=== PATIENT | female | born 1935 | race Caucasian/White ===

== ENCOUNTER → 2016-08-15 | Outpatient (CLI) | payer OTHER ==
[~2016-08-15] MED LIST: ANTIVERT/2525 MG PO; ARTHRITIS MED; AUGMENTIN 875875 MG PO; FLAGYL500 MG PO; FLONASE 0.05% 121 EA NAS; HYDROCODONE BIT1 T11 PO; HYDROXYCHLOROQ200 M1 PO; LEVOFLOXACIN500 MG PO; METHOTREXATE2.5 M1 PO; MIRALAX POWDER17 G1 PO; NATURE'S BLEND F1 MG PO; NORCO 325 MG-51 TAB PO; NORFLEX100 MG PO; PREDNICOT10 MG PO; ZITHROMAX Z PA250 MG PO; ZOFRAN ODT4 MG SL; ZYRTEC10 MG PO; Zofran4 MG PO
[2016-08-15 10:00] LABS: EST GLOM FILT AFRICAN AMERICAN > 60 ml/min
== END | disposition home or self-care (01) ==
LOC: MRI 08:54
PROVIDERS: Radiology Diagnostic Radiology
DX: M54.41 Lumbago with sciatica, right side (principal); M54.42 Lumbago with sciatica, left side; M54.2 Cervicalgia; Z98.890 Other specified postprocedural states

== ENCOUNTER → 2016-10-31 | Outpatient (CLI) | payer OTHER ==
--- NOTE | ~2016-10-31 | EKG ---
[place], [place] ELECTROCARDIOGRAM REPORT NAME: DARIEN MARSH UNIT #: [id number] ROOM: DOCTOR: SILVESTRE SAAB MD BIRTHDATE: [birth year] DOS: 10/31/2016 TIME: 09:13 a.m. Normal sinus rhythm. Normal electrocardiogram. SILVESTRE SAAB MD CM:EKGRPT:ELECTROCARDIOGRAM REPORT [id number] SILVESTRE SAAB MD
[2016-10-31 08:51] LABS: BASO % 0.8 % (0.0-1.0); EOS # 0.1 10*3/uL (0.0-0.4); HEMATOCRIT 38.6 % (37.0-47.0); HEMOGLOBIN 12.7 g/dl (12.0-16.0); LYMPH # 1.8 10*3/uL (1.3-4.4); LYMPH % 35.2 % (27.0-41.0); MEAN CELL VOLUME 98.5 fl (81.0-99.0); MEAN CORPUSCULAR HGB 32.4 pg (27.0-31.0); MEAN CORPUSCULAR HGB CONC 32.9 g/dl (33.0-37.0); MEAN PLATELET VOLUME 11.8 fl (9.6-12.3); MONO # 0.4 10*3/uL (0.1-1.0); MONO % 8.2 % (3.0-9.0); NEUT # 2.7 10*3/uL (2.3-7.9); NEUT % 53.6 % (47.0-73.0); PLATELET COUNT AUTOMATED 116 10*3/uL (130-400); RED BLOOD COUNT 3.92 10*6/uL (4.10-5.10); RED CELL DISTRI WIDTH 14.5 % (0-14.5)
[2016-10-31 09:19] LABS: ALBUMIN 3.8 gm/dl (3.1-4.5); ALKALINE PHOSPHATASE 71 U/L (45-117); BILIRUBIN, TOTAL 0.5 mg/dl (0.2-1.0); BUN 10 mg/dl (7-24); CARBON DIOXIDE 29 mmol/L (21-32); CHLORIDE 109 mmol/L (98-107); EST GLOM FILT AFRICAN AMERICAN > 60 ml/min; GLUCOSE 77 mg/dL (65-99); POTASSIUM 4.1 mmol/L (3.5-5.1); SGOT/AST 39 IU/L (3-35); SGPT/ALT 29 U/L (12-78); SODIUM 142 mmol/L (136-145); TOTAL PROTEIN 6.8 gm/dL (6.4-8.2)
[2016-10-31 09:21] LABS: BILIRUBIN NEGATIVE (NEGATIVE); BLOOD NEGATIVE (NEGATIVE); CLARITY SL CLOUDY (CLEAR); COLOR YELLOW (YELLOW); GLUCOSE NEGATIVE (NEGATIVE); KETONE NEGATIVE (NEGATIVE); LEUKO ESTERASE 1+ (NEGATIVE); NITRITE NEGATIVE (NEGATIVE); PROTEIN NEGATIVE (NEGATIVE); SPECIFIC GRAVITY >= 1.030 (1.005-1.030); UROBILINOGEN 0.2 E.U./dl (0.2-1.0)
[2016-10-31 09:40] LABS: MUCOUS TRACE; RBC 0-2 rbc/hpf (0-2); URINE REFLEX COMMENT YES (NO)
== END | disposition home or self-care (01) ==
LOC: LAB 08:27
DX: Z01.818 Encounter for other preprocedural examination (principal); M12.811 Other specific arthropathies, not elsewhere classified, right shoulder; Z79.899 Other long term (current) drug therapy

== ENCOUNTER → 2017-02-01 | Outpatient (CLI) | payer OTHER | END | disposition home or self-care (01) | LOC: RAD/SH 07:42 → RAD 08:00 | DX: K44.9 Diaphragmatic hernia without obstruction or gangrene (principal); R06.6 Hiccough ==

== ENCOUNTER → 2017-02-10 | Outpatient (CLI) | payer OTHER | END | disposition home or self-care (01) | LOC: ORTHO 02:12 | DX: M25.462 Effusion, left knee (principal); I70.90 Unspecified atherosclerosis ==

== ENCOUNTER → 2017-09-29 | Day surgery (SDC) | payer OTHER ==
[~2017-09-29] VITALS: Ht 170.1 cm; Wt 87.1 kg
[~2017-09-29] MED LIST changes: +CARAFATE1 G1 PO; +DOXYCYCLINE100 MG PO; +KEFLEX500 M1 PO; +METHOTREXATE2.5 MG PO; +NEXIUM40 MG PO; +VITAMIN B 12 PO; +VITAMIN C500 M4 PO; +VITAMIN D-32000 UNIT PO
--- NOTE | ~2017-09-29 | O ---
[place], [place] OPERATIVE NOTE NAME: DARIEN MARSH [facility] #: [id number] UNIT #: [id number] ROOM: [facility] [birth year] DOS: 09/29/2017 GASTROENDOSCOPIC REPORT HISTORY OF PRESENT ILLNESS: The patient is a 81-year-old with chief complaint of dysphagia, dyspepsia, undergoing investigation. The patient has been on methotrexate. The patient has been on hydroxyquine. The patient has been on Nexium 40 mg daily, doxycycline. She has had esophageal dilation in past. PAST SURGICAL HISTORY: Hip, spine, bilateral knee multiple Orthopedics. ALLERGIES: No known medication. SOCIAL HISTORY: Nonsmoker, nonalcohol consumer. Today's procedure part of investigation is panendoscopy plus biopsy plus esophageal balloon dilation to size 20. PREMEDICATION: Versed and Diprivan. SCOPE: Olympus forward-viewing gastroscope Q10 video. REPORT: After putting the patient in left lateral position and application of lubricant to the scope, the scope was introduced. Thereafter, under direct visualization, advanced through the length of esophagus without difficulty. Distal esophageal ulceration and the stricture site was identified. Photographic series obtained. Balloon dilation to size 20 of distal esophagus was undertaken. Hiatal hernia noticed. Gastric pouch was entered. As I approached toward the antrum, a punctated ulceration 2 cm proximal to the antrum was noticed, biopsy from margin of which was obtained. ____ Duodenal bulb, second and third part within normal limits. The patient extubated, tolerated the procedure well. IMPRESSION: Antral ulcer, gastritis, distal esophageal stricture, distal esophageal ulcers, status post balloon dilation. PLAN AND DISCUSSION: She is already on Nexium 40 mg daily and is not helping control of ulcerations at the gastric and esophageal level. Therefore, I am going to start her on Carafate 1 gram before meals and at bedtime at least 1 month and after that reduce to 1 gram t.i.d. and clinical reassessment again in future. She is going to continue with the Nexium 40 mg a day, antireflux measures, elevation of the head of the bed is in order. Follow up routinely with you in office, p.r.n. visit with us in GI Clinic. I thank you very much again for your kind referral. Photographic series have been attached to the chart for future reference and documentation. [place], [place] OPERATIVE NOTE NAME: MAIDA MARSHEstephanie Sauceda UNIT #: [id number] ROOM: DOCTOR: CINDY PACHECO,CHENCHO BIRTHDATE: [birth year] CHENCHO WHITE MD CM:OPRECORD:OPERATIVE NOTE [id number] KATE WHITE MD (TED) 09/29/17 1316 interface
[2017-09-29 10:53] VITALS: BP 162/45
[2017-09-29 12:19] VITALS: BP 130/60
[2017-09-29 12:34] VITALS: BP 169/65
[2017-09-29 12:45] VITALS: BP 178/75
== END | disposition home or self-care (01) ==
LOC: SDC 09-26 01:31
DX: K29.50 Unspecified chronic gastritis without bleeding (principal); K25.9 Gastric ulcer, unspecified as acute or chronic, without hemorrhage or perforation; K22.2 Esophageal obstruction; K22.10 Ulcer of esophagus without bleeding; K44.9 Diaphragmatic hernia without obstruction or gangrene; M19.90 Unspecified osteoarthritis, unspecified site; F41.1 Generalized anxiety disorder; K21.9 Gastro-esophageal reflux disease without esophagitis; F32.9 Major depressive disorder, single episode, unspecified; Z96.653 Presence of artificial knee joint, bilateral; Z96.611 Presence of right artificial shoulder joint; Z96.641 Presence of right artificial hip joint

== ENCOUNTER 2017-10-12 09:41 | Emergency (ER) | payer OTHER ==
[~2017-10-12] VITALS: Wt 87.1 kg
[2017-10-12 10:05] LABS: BILIRUBIN NEGATIVE (NEGATIVE); BLOOD TRACE-INTACT (NEGATIVE); CLARITY CLOUDY (CLEAR); COLOR YELLOW (YELLOW); GLUCOSE NEGATIVE (NEGATIVE); KETONE NEGATIVE (NEGATIVE); LEUKO ESTERASE 2+ (NEGATIVE); NITRITE POSITIVE (NEGATIVE); SPECIFIC GRAVITY >= 1.030 (1.005-1.030); UROBILINOGEN 0.2 E.U./dl (0.2-1.0)
[2017-10-12 10:14] LABS: BACTERIA 3+; WBC TNTC wbc/hpf (0-5)
[2017-10-12 10:35] LABS: BASO % 0.3 % (0.0-1.0); EOS % 0.6 % (1.0-4.0); HEMATOCRIT 37.5 % (37.0-47.0); HEMOGLOBIN 12.4 g/dl (12.0-16.0); LYMPH % 31.6 % (27.0-41.0); MEAN CELL VOLUME 93.8 fl (81.0-99.0); MEAN CORPUSCULAR HGB CONC 33.1 g/dl (33.0-37.0); MEAN PLATELET VOLUME 11.2 fl (9.6-12.3); MONO # 0.3 10*3/uL (0.1-1.0); MONO % 8.4 % (3.0-9.0); NEUT # 1.9 10*3/uL (2.3-7.9); NEUT % 59.1 % (47.0-73.0); PLATELET COUNT AUTOMATED 98 10*3/uL (130-400); WHITE BLOOD COUNT 3.2 10*3/uL (4.8-10.8)
[2017-10-12 10:52] LABS: ALBUMIN 3.4 gm/dl (3.1-4.5); ALKALINE PHOSPHATASE 104 U/L (45-117); BUN 12 mg/dl (7-24); CHLORIDE 106 mmol/L (98-107); CREATININE 0.91 mg/dL (0.55-1.02); SGOT/AST 32 IU/L (3-35); SGPT/ALT 24 U/L (12-78); SODIUM 138 mmol/L (136-145); TOTAL PROTEIN 6.8 gm/dL (6.4-8.2)
[2017-10-12 10:55] LABS: TROPONIN I < 0.015 ng/ml (<0.045)
[2017-10-12] MEDS ORDERED: LEVAQUIN750 M1 PO (11:53)
[2017-10-12] MEDS ORDERED: OMEPRAZOLE MAGN20 MG PO (11:53)
[2017-10-12] MEDS ORDERED: PREDNISONE50 MG PO (11:55)
== END 2017-10-12 12:00 | disposition home or self-care (01) ==
LOC: ED 09:41
PROVIDERS: Student in an Organized Health Care Education/Training Program
DX: N39.0 Urinary tract infection, site not specified (principal); R31.9 Hematuria, unspecified; K21.9 Gastro-esophageal reflux disease without esophagitis; E03.9 Hypothyroidism, unspecified; Z79.899 Other long term (current) drug therapy

== ENCOUNTER 2017-12-17 12:13 | Emergency (ER) | payer OTHER ==
[~2017-12-17] VITALS: Ht 170.1 cm; Wt 89.4 kg
[~2017-12-17 12:13] MED LIST changes: +LEVAQUIN750 M1 PO; +OMEPRAZOLE MAGN20 MG PO; +PREDNISONE50 MG PO
[2017-12-17 13:12] LABS: BASO % 0.8 % (0.0-1.0); EOS # 0.1 10*3/uL (0.0-0.4); EOS % 2.7 % (1.0-4.0); HEMOGLOBIN 12.3 g/dl (12.0-16.0); LYMPH # 1.6 10*3/uL (1.3-4.4); LYMPH % 30.7 % (27.0-41.0); MEAN CELL VOLUME 95.5 fl (81.0-99.0); MEAN CORPUSCULAR HGB 30.9 pg (27.0-31.0); MEAN CORPUSCULAR HGB CONC 32.4 g/dl (33.0-37.0); MEAN PLATELET VOLUME 12.1 fl (9.6-12.3); MONO # 0.7 10*3/uL (0.1-1.0); MONO % 12.8 % (3.0-9.0); NEUT # 2.7 10*3/uL (2.3-7.9); NEUT % 52.8 % (47.0-73.0); PLATELET COUNT AUTOMATED 110 10*3/uL (130-400); RED BLOOD COUNT 3.98 10*6/uL (4.10-5.10); WHITE BLOOD COUNT 5.2 10*3/uL (4.8-10.8)
[2017-12-17 13:31] LABS: ALBUMIN 3.8 gm/dl (3.1-4.5); ALKALINE PHOSPHATASE 96 U/L (45-117); BUN 7 mg/dl (7-24); CHLORIDE 106 mmol/L (98-107); CREATININE 0.79 mg/dL (0.55-1.02); POTASSIUM 3.9 mmol/L (3.5-5.1); SGOT/AST 38 IU/L (3-35); SGPT/ALT 32 U/L (12-78); SODIUM 139 mmol/L (136-145); TOTAL PROTEIN 7.3 gm/dL (6.4-8.2)
[2017-12-17 13:33] LABS: TROPONIN I < 0.015 ng/ml (<0.045)
[2017-12-17] MEDS ORDERED: PROAIR HFA8.5 GM INH (13:34)
[2017-12-17] MEDS ORDERED: MEDROL DOSEPAK4 MG PO (13:34)
[2017-12-17] MEDS ORDERED: AUGMENTIN 875875 MG PO (13:34)
[2017-12-17] MEDS ORDERED: TESSALON PERLE100 M1 PO (13:35)
== END 2017-12-17 14:02 | disposition home or self-care (01) ==
LOC: ED 12:13
PROVIDERS: Nurse Practitioner Family
DX: J06.9 Acute upper respiratory infection, unspecified (principal); R63.0 Anorexia; K21.9 Gastro-esophageal reflux disease without esophagitis; M06.9 Rheumatoid arthritis, unspecified; E03.9 Hypothyroidism, unspecified; E66.9 Obesity, unspecified; Z79.899 Other long term (current) drug therapy

== ENCOUNTER 2018-12-12 10:05 | Emergency (ER) | payer OTHER ==
[~2018-12-12] VITALS: Ht 170.1 cm; Wt 87.1 kg
[~2018-12-12 10:05] MED LIST changes: +MEDROL DOSEPAK4 MG PO; +PROAIR HFA8.5 GM INH; +TESSALON PERLE100 M1 PO
[2018-12-12 10:54] LABS: BASO % 0.8 % (0.0-1.0); EOS # 0.1 10*3/uL (0.0-0.4); EOS % 1.6 % (1.0-4.0); HEMATOCRIT 36.1 % (37.0-47.0); HEMOGLOBIN 12.1 g/dl (12.0-16.0); LYMPH # 0.7 10*3/uL (1.3-4.4); LYMPH % 13.9 % (27.0-41.0); MEAN CELL VOLUME 96.5 fl (81.0-99.0); MEAN CORPUSCULAR HGB 32.4 pg (27.0-31.0); MEAN CORPUSCULAR HGB CONC 33.5 g/dl (33.0-37.0); MEAN PLATELET VOLUME 12.6 fl (9.6-12.3); MONO # 0.5 10*3/uL (0.1-1.0); MONO % 9.7 % (3.0-9.0); NEUT # 3.7 10*3/uL (2.3-7.9); NEUT % 73.8 % (47.0-73.0); PLATELET COUNT AUTOMATED 165 10*3/uL (130-400); RED BLOOD COUNT 3.74 10*6/uL (4.10-5.10); RED CELL DISTRI WIDTH 14.4 % (0-14.5)
[2018-12-12 11:00] LABS: BILIRUBIN NEGATIVE (NEGATIVE); BLOOD NEGATIVE (NEGATIVE); CLARITY CLOUDY (CLEAR); GLUCOSE NEGATIVE (NEGATIVE); KETONE NEGATIVE (NEGATIVE); LEUKO ESTERASE TRACE (NEGATIVE); NITRITE NEGATIVE (NEGATIVE); SPECIFIC GRAVITY 1.025 (1.005-1.030); UROBILINOGEN 0.2 E.U./dl (0.2-1.0)
[2018-12-12 11:12] LABS: BACTERIA 2+; COLOR YELLOW (YELLOW); MUCOUS 1+
[2018-12-12 11:30] LABS: ALBUMIN 3.6 gm/dl (3.1-4.5); ALKALINE PHOSPHATASE 83 U/L (45-117); BUN 11 mg/dl (7-24); CHLORIDE 104 mmol/L (98-107); CREATININE 0.82 mg/dL (0.55-1.02); POTASSIUM 4.2 mmol/L (3.5-5.1); SGOT/AST 30 IU/L (3-35); SGPT/ALT 30 U/L (12-78); SODIUM 137 mmol/L (136-145); TOTAL PROTEIN 7.1 gm/dL (6.4-8.2)
== END 2018-12-12 13:57 | disposition home or self-care (01) ==
LOC: ED 10:05
PROVIDERS: Emergency Medicine
DX: K57.92 Diverticulitis of intestine, part unspecified, without perforation or abscess without bleeding (principal); K21.9 Gastro-esophageal reflux disease without esophagitis; E03.9 Hypothyroidism, unspecified; E66.9 Obesity, unspecified; Z79.899 Other long term (current) drug therapy; Z79.2 Long term (current) use of antibiotics; Z90.49 Acquired absence of other specified parts of digestive tract

== ENCOUNTER → 2019-05-15 | Outpatient (CLI) | payer OTHER | END | disposition home or self-care (01) | LOC: US 06:27 | DX: N20.0 Calculus of kidney (principal); Z90.710 Acquired absence of both cervix and uterus; Z96.641 Presence of right artificial hip joint ==

== ENCOUNTER 2019-09-19 01:53 | Inpatient (IN) | payer MEDICARE ==
[2019-09-19] VITALS (13 sets, daily range): BP systolic 147–196; BP diastolic 61–99
[~2019-09-19] VITALS: Ht 167.6 cm; Wt 91.8 kg
[2019-09-19 02:30] LABS: BASO % 0.4 % (0.0-1.0); EOS # 0.1 10*3/uL (0.0-0.4); EOS % 1.7 % (1.0-4.0); HEMATOCRIT 38.7 % (37.0-47.0); HEMOGLOBIN 12.7 g/dl (12.0-16.0); LYMPH # 1.7 10*3/uL (1.3-4.4); LYMPH % 24.1 % (27.0-41.0); MEAN CORPUSCULAR HGB 31.8 pg (27.0-31.0); MEAN CORPUSCULAR HGB CONC 32.8 g/dl (33.0-37.0); MEAN PLATELET VOLUME 11.7 fl (9.6-12.3); MONO # 0.4 10*3/uL (0.1-1.0); MONO % 6.3 % (3.0-9.0); NEUT # 4.7 10*3/uL (2.3-7.9); NEUT % 67.2 % (47.0-73.0); PLATELET COUNT AUTOMATED 128 10*3/uL (130-400); RED BLOOD COUNT 3.99 10*6/uL (4.10-5.10); RED CELL DISTRI WIDTH 13.2 % (0-14.5)
[2019-09-19 02:43] LABS: ALKALINE PHOSPHATASE 96 U/L (45-117); BUN 12 mg/dl (7-24); CHLORIDE 105 mmol/L (98-107); CREATININE 0.92 mg/dL (0.55-1.02); LIPASE 90 U/L (73-393); POTASSIUM 3.7 mmol/L (3.5-5.1); SGOT/AST 50 IU/L (3-35); SGPT/ALT 42 U/L (12-78); SODIUM 139 mmol/L (136-145); TOTAL PROTEIN 7.3 gm/dL (6.4-8.2)
[2019-09-19 04:23] LABS: BILIRUBIN NEGATIVE (NEGATIVE); BLOOD NEGATIVE (NEGATIVE); CLARITY CLEAR (CLEAR); COLOR YELLOW (YELLOW); GLUCOSE NEGATIVE (NEGATIVE); KETONE NEGATIVE (NEGATIVE); LEUKO ESTERASE NEGATIVE (NEGATIVE); NITRITE NEGATIVE (NEGATIVE); PH 6.5 (5.0-9.0); UROBILINOGEN 0.2 E.U./dl (0.2-1.0)
[2019-09-19 04:41] LABS: BACTERIA TRACE; RBC 0-2 rbc/hpf (0-2); WBC 0-2 wbc/hpf (0-5)
[2019-09-19] MEDS ORDERED: METHOTREXATE2.5 M1 PO (05:53)
[2019-09-19 06:26] LABS: PHOSPHOROUS 3.4 mg/dL (2.5-4.9)
[2019-09-19 06:31] LABS: INTERNATIONAL NORM RATIO 0.9 (2.0-3.5)
[2019-09-19 06:32] LABS: THYROID STIM HORMONE (HS) 2.68 uIU/ml (0.358-4.75)
[2019-09-20] VITALS: BP 143/51
[2019-09-20 06:24] LABS: BASO % 0.8 % (0.0-1.0); EOS # 0.1 10*3/uL (0.0-0.4); EOS % 3.3 % (1.0-4.0); HEMATOCRIT 34.4 % (37.0-47.0); HEMOGLOBIN 10.9 g/dl (12.0-16.0); LYMPH # 1.1 10*3/uL (1.3-4.4); MEAN CELL VOLUME 99.4 fl (81.0-99.0); MEAN CORPUSCULAR HGB 31.5 pg (27.0-31.0); MEAN CORPUSCULAR HGB CONC 31.7 g/dl (33.0-37.0); MEAN PLATELET VOLUME 12.3 fl (9.6-12.3); MONO # 0.3 10*3/uL (0.1-1.0); MONO % 7.8 % (3.0-9.0); NEUT # 2.4 10*3/uL (2.3-7.9); NEUT % 61.1 % (47.0-73.0); PLATELET COUNT AUTOMATED 103 10*3/uL (130-400); RED BLOOD COUNT 3.46 10*6/uL (4.10-5.10); RED CELL DISTRI WIDTH 13.3 % (0-14.5)
[2019-09-20 06:32] LABS: ALBUMIN 3.2 gm/dl (3.1-4.5); ALKALINE PHOSPHATASE 69 U/L (45-117); BUN 5 mg/dl (7-24); CHLORIDE 112 mmol/L (98-107); CREATININE 0.79 mg/dL (0.55-1.02); POTASSIUM 4.2 mmol/L (3.5-5.1); SGOT/AST 38 IU/L (3-35); SGPT/ALT 30 U/L (12-78); SODIUM 142 mmol/L (136-145); TOTAL PROTEIN 6.2 gm/dL (6.4-8.2)
[2019-09-20 08:00] VITALS: BP 172/56
[2019-09-20 12:00] VITALS: BP 166/85
[2019-09-20 16:00] VITALS: BP 177/76
== END 2019-09-20 17:25 | disposition home or self-care (01) | DRG 392 ==
LOC: ED 01:53 → EDHOLD 04:49 → 4E 04:49
PROVIDERS: Emergency Medicine; Internal Medicine; Student in an Organized Health Care Education/Training Program; ADMIT Family Medicine
DX: A08.4 Viral intestinal infection, unspecified (principal); D69.6 Thrombocytopenia, unspecified; I16.0 Hypertensive urgency; R73.9 Hyperglycemia, unspecified; K44.9 Diaphragmatic hernia without obstruction or gangrene; R13.10 Dysphagia, unspecified; M06.9 Rheumatoid arthritis, unspecified; E03.9 Hypothyroidism, unspecified; E66.9 Obesity, unspecified; K21.9 Gastro-esophageal reflux disease without esophagitis; I10 Essential (primary) hypertension; Z96.653 Presence of artificial knee joint, bilateral; Z96.611 Presence of right artificial shoulder joint; Z96.641 Presence of right artificial hip joint; Z79.899 Other long term (current) drug therapy; Z88.5 Allergy status to narcotic agent; Z68.34 Body mass index [BMI] 34.0-34.9, adult

== ENCOUNTER 2020-08-25 18:15 | Emergency (ER) | payer MEDICARE ==
[~2020-08-25] VITALS: Ht 170.1 cm; Wt 95.3 kg
[2020-08-25 19:42] LABS: BASO # 0.1 10*3/uL (0.0-0.1); BASO % 0.9 % (0.0-1.0); EOS # 0.2 10*3/uL (0.0-0.4); EOS % 4.2 % (1.0-4.0); HEMATOCRIT 37.3 % (37.0-47.0); LYMPH # 1.4 10*3/uL (1.3-4.4); MEAN CELL VOLUME 94.9 fl (81.0-99.0); MEAN CORPUSCULAR HGB 30.3 pg (27.0-31.0); MEAN CORPUSCULAR HGB CONC 31.9 g/dl (33.0-37.0); MEAN PLATELET VOLUME 11.3 fl (9.6-12.3); MONO # 0.5 10*3/uL (0.1-1.0); MONO % 8.4 % (3.0-9.0); NEUT # 3.6 10*3/uL (2.3-7.9); NEUT % 62.3 % (47.0-73.0); PLATELET COUNT AUTOMATED 132 10*3/uL (130-400); RED BLOOD COUNT 3.93 10*6/uL (4.10-5.10); WHITE BLOOD COUNT 5.7 10*3/uL (4.8-10.8)
[2020-08-25 19:59] LABS: ALBUMIN 3.7 gm/dl (3.1-4.5); CREATININE 1.12 mg/dL (0.55-1.02); POTASSIUM 4.8 mmol/L (3.5-5.1); TOTAL PROTEIN 7.2 gm/dL (6.4-8.2)
[2020-08-25] MEDS ORDERED: OMEPRAZOLE40 MG PO (21:06)
[2020-08-25] MEDS ORDERED: MIRALAX POWDER17 G1 PO (21:06)
== END 2020-08-25 21:35 | disposition home or self-care (01) ==
LOC: ED 18:15
PROVIDERS: Internal Medicine
DX: K21.9 Gastro-esophageal reflux disease without esophagitis (principal); K59.00 Constipation, unspecified; M19.90 Unspecified osteoarthritis, unspecified site; F41.9 Anxiety disorder, unspecified; F32.9 Major depressive disorder, single episode, unspecified; M79.7 Fibromyalgia; M06.9 Rheumatoid arthritis, unspecified; Z88.6 Allergy status to analgesic agent; Z79.899 Other long term (current) drug therapy; Z98.890 Other specified postprocedural states; Z90.49 Acquired absence of other specified parts of digestive tract; Z96.653 Presence of artificial knee joint, bilateral; Z96.641 Presence of right artificial hip joint; Z96.611 Presence of right artificial shoulder joint

== ENCOUNTER → 2020-10-05 | Outpatient (CLI) | payer MEDICARE ==
[~2020-10-05] MED LIST changes: +OMEPRAZOLE40 MG PO
== END | disposition home or self-care (01) ==
LOC: ORTHO 00:22
PROVIDERS: ATTEND Orthopaedic Surgery
DX: M85.861 Other specified disorders of bone density and structure, right lower leg (principal); M85.862 Other specified disorders of bone density and structure, left lower leg; I70.203 Unspecified atherosclerosis of native arteries of extremities, bilateral legs; R60.0 Localized edema; Z96.653 Presence of artificial knee joint, bilateral

== ENCOUNTER 2021-12-24 22:29 | Emergency (ER) | payer MEDICARE ==
[2021-12-24] MEDS ORDERED: PANTOPRAZOLE SO40 MG PO (22:45)
[2021-12-24] MEDS ORDERED: METHOTREXATE S2.5 M1 PO (22:45)
[2021-12-24 23:11] LABS: BASO % 0.8 % (0.0-1.0); EOS # 0.1 10*3/uL (0.0-0.4); EOS % 3.6 % (1.0-4.0); HEMATOCRIT 34.7 % (37.0-47.0); LYMPH # 0.9 10*3/uL (1.3-4.4); LYMPH % 23.8 % (27.0-41.0); MEAN CELL VOLUME 96.9 fl (81.0-99.0); MEAN CORPUSCULAR HGB 31.6 pg (27.0-31.0); MEAN CORPUSCULAR HGB CONC 32.6 g/dl (33.0-37.0); MEAN PLATELET VOLUME 12.3 fl (9.6-12.3); MONO # 0.3 10*3/uL (0.1-1.0); MONO % 6.7 % (3.0-9.0); NEUT # 2.5 10*3/uL (2.3-7.9); NEUT % 64.8 % (47.0-73.0); PLATELET COUNT AUTOMATED 56 10*3/uL (130-400); RED BLOOD COUNT 3.58 10*6/uL (4.10-5.10); RED CELL DISTRI WIDTH 14.3 % (0-14.5); WHITE BLOOD COUNT 3.9 10*3/uL (4.8-10.8)
[2021-12-24] MEDS ORDERED: LEFLUNOMIDE10 M1 PO (23:18)
[2021-12-24 23:28] LABS: ALKALINE PHOSPHATASE 117 U/L (45-117); BUN 10 mg/dl (7-24); CHLORIDE 111 mmol/L (98-107); CREATININE 0.84 mg/dL (0.55-1.02); LIPASE 103 U/L (73-393); POTASSIUM 4.4 mmol/L (3.5-5.1); SGOT/AST 61 IU/L (3-35); SGPT/ALT 70 U/L (12-78); SODIUM 141 mmol/L (136-145); TOTAL PROTEIN 6.5 gm/dL (6.4-8.2)
[2021-12-24 23:46] LABS: BILIRUBIN Negative (Negative); BLOOD Negative (Negative); CLARITY Cloudy (Clear); COLOR Yellow (Yellow); GLUCOSE Negative (Negative); KETONE Trace (Negative); LEUKO ESTERASE 3+ (Negative); NITRITE Negative (Negative); SPECIFIC GRAVITY 1.025 (1.001-1.030)
[2021-12-25 00:07] LABS: BACTERIA 1+; EPITHELIAL CELLS 41-50; WBC 21-30 wbc/hpf (0-5)
[2021-12-25] MEDS ORDERED: CEPHALEXIN500 M1 PO (01:17)
== END 2021-12-25 01:13 | disposition home or self-care (01) ==
LOC: ED 22:29
PROVIDERS: Emergency Medicine
DX: N39.0 Urinary tract infection, site not specified (principal); D69.6 Thrombocytopenia, unspecified; R16.1 Splenomegaly, not elsewhere classified; Z88.6 Allergy status to analgesic agent; Z79.899 Other long term (current) drug therapy; Z90.49 Acquired absence of other specified parts of digestive tract; Z98.890 Other specified postprocedural states

== ENCOUNTER 2022-10-09 12:03 | Emergency (ER) | payer MEDICARE ==
[~2022-10-09] VITALS: Ht 167.6 cm; Wt 81.6 kg
[~2022-10-09 12:03] MED LIST changes: +CEPHALEXIN500 M1 PO; +LEFLUNOMIDE10 M1 PO; +METHOTREXATE S2.5 M1 PO; +PANTOPRAZOLE SO40 MG PO
[2022-10-09 12:52] LABS: HEMATOCRIT 39.3 % (37.0-47.0); MEAN CORPUSCULAR HGB 31.2 pg (27.0-31.0); MEAN CORPUSCULAR HGB CONC 31.8 g/dl (33.0-37.0); MEAN PLATELET VOLUME 11.4 fl (9.6-12.3); PLATELET COUNT AUTOMATED 42 10*3/uL (130-400); RED BLOOD COUNT 4.01 10*6/uL (4.10-5.10); RED CELL DISTRI WIDTH 14.4 % (0-14.5); WHITE BLOOD COUNT 3.8 10*3/uL (4.8-10.8)
[2022-10-09 13:07] LABS: ALKALINE PHOSPHATASE 99 U/L (46-116); BUN 8 mg/dl (9-23); CHLORIDE 102 mmol/L (98-107); POTASSIUM 4.2 mmol/L (3.4-5.1); SGPT/ALT 27 U/L (10-49); TOTAL PROTEIN 7.1 gm/dL (6.0-8.0)
[2022-10-09 13:15] LABS: MANUAL DIFF REFLEX YES
[2022-10-09 13:20] LABS: BASOPHILS 1 % (0-1); OVALOCYTES FEW; TOTAL CELLS COUNTED 100 #CELLS
[2022-10-09 13:21] LABS: PLATELET SUFFICIENCY LOW (NORMAL)
[2022-10-09 13:24] LABS: ACT PARTIAL THROMBO TIME 29.6 SECONDS (20.0-32.1); INTERNATIONAL NORM RATIO 1.1 (2.0-3.5)
[2022-10-09 13:29] LABS: BILIRUBIN Negative (Negative); BLOOD Negative (Negative); CLARITY Clear (Clear); COLOR Dark Yellow (Yellow); GLUCOSE Negative (Negative); KETONE Trace (Negative); LEUKO ESTERASE Negative (Negative); NITRITE Negative (Negative); PH 5.5 (4.5-8.0); SPECIFIC GRAVITY 1.025 (1.001-1.030)
[2022-10-09 14:15] LABS: BACTERIA 3+; MUCOUS 1+
[2022-10-09 14:37] LABS: ABG BASE EXCESS -0.3 mmol/L (-2.0-2.0); ARTERIAL BLOOD GAS PH 7.454 (7.35-7.45); ARTERIAL BLOOD GAS PO2 68.8 (80-90)
== END 2022-10-09 16:44 | disposition home or self-care (01) ==
LOC: ED 12:03
PROVIDERS: Physician Assistant
DX: B34.9 Viral infection, unspecified (principal); M19.90 Unspecified osteoarthritis, unspecified site; F41.9 Anxiety disorder, unspecified; K21.9 Gastro-esophageal reflux disease without esophagitis; F32.A Depression, unspecified; M79.7 Fibromyalgia; Z88.5 Allergy status to narcotic agent; Z96.653 Presence of artificial knee joint, bilateral; Z90.49 Acquired absence of other specified parts of digestive tract; Z98.890 Other specified postprocedural states

== ENCOUNTER → 2022-10-25 | Outpatient (CLI) | payer MEDICARE | END | disposition home or self-care (01) | LOC: US 07:24 | PROVIDERS: ATTEND Family Medicine | DX: K21.9 Gastro-esophageal reflux disease without esophagitis (principal); K44.9 Diaphragmatic hernia without obstruction or gangrene; N28.1 Cyst of kidney, acquired; R10.9 Unspecified abdominal pain; R13.10 Dysphagia, unspecified ==

== ENCOUNTER 2023-04-24 23:45 | Inpatient (IN) | payer MEDICARE ==
[~2023-04-24] VITALS: Ht 165.1 cm; Wt 83.4 kg
[~2023-04-24 23:45] MED LIST changes: +CIPRO500 MG PO; +LATANOPROST2.5 ML OP; +LEUCOVORIN CALCI5 MG PO; +LISINOPRIL10 M1 PO
[2023-04-25] VITALS (19 sets, daily range): BP systolic 148–222; BP diastolic 62–106
[2023-04-25 04:17] LABS: BASO % 0.6 % (0.0-1.0); EOS % 0.3 % (1.0-4.0); HEMATOCRIT 34.8 % (37.0-47.0); LYMPH # 0.4 10*3/uL (1.3-4.4); LYMPH % 10.4 % (27.0-41.0); MEAN CELL VOLUME 95.3 fl (81.0-99.0); MEAN CORPUSCULAR HGB 31.2 pg (27.0-31.0); MEAN CORPUSCULAR HGB CONC 32.8 g/dl (33.0-37.0); MEAN PLATELET VOLUME 13.4 fl (9.6-12.3); MONO # 0.1 10*3/uL (0.1-1.0); MONO % 2.4 % (3.0-9.0); NEUT # 2.9 10*3/uL (2.3-7.9); PLATELET COUNT AUTOMATED 53 10*3/uL (130-400); RED BLOOD COUNT 3.65 10*6/uL (4.10-5.10); RED CELL DISTRI WIDTH 16.4 % (0-14.5); WHITE BLOOD COUNT 3.4 10*3/uL (4.8-10.8)
[2023-04-25 04:37] LABS: ALKALINE PHOSPHATASE 101 U/L (46-116); BUN 9 mg/dl (9-23); CHLORIDE 108 mmol/L (98-107); POTASSIUM 4.9 mmol/L (3.4-5.1); SGPT/ALT 29 U/L (10-49); TOTAL PROTEIN 6.8 gm/dL (6.0-8.0)
[2023-04-25] MEDS ORDERED: WELLCOVORIN5 MG PO (09:46)
[2023-04-25] MEDS ORDERED: METHOTREXATE2.5 MG PO (09:47)
[2023-04-25] MEDS ORDERED: LEFLUNOMIDE10 M1 PO (09:47)
[2023-04-25 21:38] LABS: BILIRUBIN Negative (Negative); BLOOD Negative (Negative); CLARITY Clear (Clear); COLOR Yellow (Yellow); GLUCOSE Trace (Negative); KETONE Negative (Negative); LEUKO ESTERASE Negative (Negative); NITRITE Negative (Negative); PH 7.5 (4.5-8.0); UROBILINOGEN 0.2 E.U./dl (0.0-1.0)
[2023-04-25 21:47] LABS: RBC 0-2 rbc/hpf (0-2)
[2023-04-26] VITALS: BP 158/58
[2023-04-26 04:00] VITALS: BP 147/51
[2023-04-26 05:06] LABS: ALKALINE PHOSPHATASE 89 U/L (46-116); BUN 14 mg/dl (9-23); CHLORIDE 108 mmol/L (98-107); POTASSIUM 4.2 mmol/L (3.4-5.1); SGPT/ALT 28 U/L (10-49); TOTAL PROTEIN 6.6 gm/dL (6.0-8.0)
[2023-04-26 06:37] LABS: BASO % 0.2 % (0.0-1.0); HEMATOCRIT 32.1 % (37.0-47.0); LYMPH # 0.3 10*3/uL (1.3-4.4); LYMPH % 7.5 % (27.0-41.0); MEAN CELL VOLUME 94.7 fl (81.0-99.0); MEAN CORPUSCULAR HGB 30.7 pg (27.0-31.0); MEAN CORPUSCULAR HGB CONC 32.4 g/dl (33.0-37.0); MEAN PLATELET VOLUME 12.3 fl (9.6-12.3); MONO # 0.2 10*3/uL (0.1-1.0); MONO % 4.7 % (3.0-9.0); NEUT # 3.5 10*3/uL (2.3-7.9); NEUT % 87.6 % (47.0-73.0); PLATELET COUNT AUTOMATED 53 10*3/uL (130-400); RED BLOOD COUNT 3.39 10*6/uL (4.10-5.10); RED CELL DISTRI WIDTH 16.4 % (0-14.5)
[2023-04-26 08:00] VITALS: BP 148/75
[2023-04-26 12:00] VITALS: BP 120/53
[2023-04-26] MEDS ORDERED: AMLODIPINE BESY10 MG PO (12:27)
[2023-04-26] MEDS ORDERED: LISINOPRIL10 M1 PO (12:27)
[2023-04-26 16:00] VITALS: BP 133/62
== END 2023-04-26 17:45 | disposition home health service (06) | DRG 916 ==
LOC: ED 23:45 → EDHOLD 04-25 02:09 → ICCU 04-25 02:09 → EDHOLD 04-25 02:56 → ICCU 04-25 08:34
PROVIDERS: Internal Medicine; Student in an Organized Health Care Education/Training Program; ADMIT Internal Medicine; ATTEND Internal Medicine
PROC: 30233K1 Transfusion of Nonautologous Frozen Plasma into Peripheral Vein, Percutaneous Approach (ICD-10-PCS; principal; 2023-04-25)
DX: T78.3XXA Angioneurotic edema, initial encounter (principal); D61.818 Other pancytopenia; K08.409 Partial loss of teeth, unspecified cause, unspecified class; K21.9 Gastro-esophageal reflux disease without esophagitis; Z96.641 Presence of right artificial hip joint; Z96.611 Presence of right artificial shoulder joint; I10 Essential (primary) hypertension; Y84.8 Other medical procedures as the cause of abnormal reaction of the patient, or of later complication, without mention of misadventure at the time of the procedure; Y82.8 Other medical devices associated with adverse incidents; Z96.653 Presence of artificial knee joint, bilateral; M06.9 Rheumatoid arthritis, unspecified; E03.9 Hypothyroidism, unspecified; Z88.6 Allergy status to analgesic agent; Z88.8 Allergy status to other drugs, medicaments and biological substances; Z90.49 Acquired absence of other specified parts of digestive tract; Y92.89 Other specified places as the place of occurrence of the external cause

== ENCOUNTER → 2023-06-19 | Outpatient (CLI) | payer MEDICARE ==
[~2023-06-19] MED LIST changes: +AMLODIPINE BESY10 MG PO; +WELLCOVORIN5 MG PO
[2023-06-19 12:28] LABS: BASO % 0.5 % (0.0-1.0); EOS # 0.1 10*3/uL (0.0-0.4); EOS % 2.1 % (1.0-4.0); HEMATOCRIT 34.3 % (37.0-47.0); LYMPH # 0.7 10*3/uL (1.3-4.4); MEAN CELL VOLUME 94.8 fl (81.0-99.0); MEAN CORPUSCULAR HGB 30.9 pg (27.0-31.0); MEAN CORPUSCULAR HGB CONC 32.7 g/dl (33.0-37.0); MEAN PLATELET VOLUME 12.3 fl (9.6-12.3); MONO # 0.4 10*3/uL (0.1-1.0); NEUT # 2.7 10*3/uL (2.3-7.9); NEUT % 70.1 % (47.0-73.0); PLATELET COUNT AUTOMATED 74 10*3/uL (130-400); RED BLOOD COUNT 3.62 10*6/uL (4.10-5.10); RED CELL DISTRI WIDTH 16.2 % (0-14.5); WHITE BLOOD COUNT 3.9 10*3/uL (4.8-10.8)
[2023-06-19 12:44] LABS: TOTAL PROTEIN 6.7 gm/dL (6.0-8.0)
[2023-06-19 13:19] LABS: ALKALINE PHOSPHATASE 120 U/L (46-116); BUN 11 mg/dl (9-23); CHLORIDE 109 mmol/L (98-107); POTASSIUM 4.6 mmol/L (3.4-5.1); SGPT/ALT 23 U/L (5-49); TOTAL PROTEIN 6.5 gm/dL (6.0-8.0)
== END | disposition home or self-care (01) ==
LOC: LAB 11:50
PROVIDERS: Family Medicine; ATTEND Emergency Medicine
DX: G93.41 Metabolic encephalopathy (principal); D72.819 Decreased white blood cell count, unspecified; D64.9 Anemia, unspecified

== ENCOUNTER → 2023-06-26 | Outpatient (CLI) | payer MEDICARE | END | disposition home or self-care (01) | LOC: RAD 17:33 | PROVIDERS: ATTEND Emergency Medicine | DX: M47.12 Other spondylosis with myelopathy, cervical region (principal); M48.02 Spinal stenosis, cervical region ==

== ENCOUNTER → 2024-06-06 | Outpatient (CLI) | payer MEDICARE | END | disposition home or self-care (01) | LOC: MRI 01:17 | PROVIDERS: ATTEND Family Medicine | DX: M47.22 Other spondylosis with radiculopathy, cervical region (principal); M48.02 Spinal stenosis, cervical region; M50.13 Cervical disc disorder with radiculopathy, cervicothoracic region ==

== ENCOUNTER → 2025-05-22 | Outpatient (CLI) | payer MEDICARE | END | disposition home or self-care (01) | LOC: LAB 09:38 | PROVIDERS: ATTEND Internal Medicine Gastroenterology | DX: D69.6 Thrombocytopenia, unspecified (principal) ==